=== PATIENT | female | born 1955 ===

== ENCOUNTER 2019-01-09 14:59 | Emergency (ER) | payer OTHER ==
[~2019-01-09] VITALS: Ht 165.1 cm; Wt 89.4 kg
[2019-01-09] MEDS ORDERED: HYDROCHLOROTHIAZIDE (15:10)
[2019-01-09 16:00] LABS: BASOPHILS # (AUTO) 0.1 K/uL (0.0-8.0); BASOPHILS % (AUTO) 0.8 % (0.0-2.0); EOSINOPHILS # (AUTO) 0.2 K/uL (0.0-0.7); EOSINOPHILS % (AUTO) 3.2 % (0.0-7.0); HEMATOCRIT 46.9 % (31.2-41.9); HEMOGLOBIN 15.4 g/dL (10.9-14.3); LYMPHOCYTES # (AUTO) 3.1 K/uL (20.0-40.0); LYMPHOCYTES % (AUTO) 44.5 % (20.5-51.5); MEAN CORPUSCULAR HEMOGLOBIN 28.7 uug (24.7-32.8); MEAN CORPUSCULAR HGB CONC 33 g/dL (32.3-35.6); MEAN CORPUSCULAR VOLUME 87.4 fL (75.5-95.3); MONOCYTES # (AUTO) 0.4 K/uL (2.0-10.0); MONOCYTES % (AUTO) 6.4 % (0.0-11.0); NEUTROPHILS # (AUTO) 3.1 K/uL (1.8-8.9); NEUTROPHILS % (AUTO) 45.1 % (38.5-71.5); PLATELET COUNT (AUTO) 217 K/uL (179-408); RED BLOOD CELL COUNT(AUTO) 5.37 MIL/uL (3.63-4.92)
[2019-01-09 16:09] LABS: CREATININE 0.7 mg/dL (0.6-1.3); POTASSIUM 3.2 mmol/L (3.5-5.1)
--- NOTE | 2019-01-09 17:51 | NUR ---
PT WAS EVALUATED BY DR COLÓN. PT DECIDED TO LEAVE HOSPITAL AMA. DR COLÓN EXPLAINED ALL RISKS OF LEAVING HOSPITAL AMA TO THE PT AND TO HER FAMILY. PT WERBALIZED FULL UNDERSTANDING OF D/C INSTRUCTIONS. PT SIGNED AMA FORM AND LEFT HOSPITAL WITH HER FAMILY.
[2019-01-09 18:06] VITALS: BP 129/73
== END 2019-01-09 18:07 | disposition left against medical advice (07) ==
LOC: ER 15:03
DX: R42 Dizziness and giddiness (principal); R20.2 Paresthesia of skin; R06.00 Dyspnea, unspecified; Z88.0 Allergy status to penicillin; Z88.8 Allergy status to other drugs, medicaments and biological substances; Z79.899 Other long term (current) drug therapy
CPT/HCPCS: 36415; 70030-TC; 70450; 71045; 85025; 85730; 93005; A4663